=== PATIENT | female | born 1975 | race Caucasian/White ===

== ENCOUNTER 2018-01-10 20:47 | Emergency (ER) | payer OTHER ==
--- OUTSIDE RECORDS SUMMARY | 2018-01-10 20:49 | XMS REPORT ---
:1975 Author Organization eClinicalWorks Care Team Providers Name Role Phone Germaine Bashir Provider Role Unavailable Allergies No Known Allergies Problems Problem Type Condition Code Onset Dates Condition Status Problem Chronic vaginitis N76.1 Active Medications No Known Medications Results No Known Results Summary Purpose eClinicalWorks Submission
--- OUTSIDE RECORDS SUMMARY | 2018-01-10 20:50 | XMS REPORT ---
:1975 Author Organization [employer] Care Team Providers Name Role Phone Germaine Bashir Provider Role Unavailable Allergies, Adverse Reactions, Alerts Substance Reaction Event Type N.K.D.A. Info Not Available Non Drug Allergy Problems Problem Type Condition Code Onset Dates Condition Status Assessment Discharge of vagina N89.8 Active Assessment Bad odor of urine R82.90 Active Problem Chronic vaginitis N76.1 Active Assessment Chronic vaginitis N76.1 Active Medications Medication Code Code Instructions Start End Date Status Dosage System Date Ibuprofen NDC 69436192357 800 MG Orally Active 1 tablet Three times a with food day or milk as needed Tinidazole NDC 12288864503 500 MG Orally July 02, July 10, Active 4 tablets Once a day 2017 2017 with food Diflucan NDC 63575789202 150 MG Orally July 10, Active 1 tablet Take one now and 2018 repeat dose in 72h Adderall NDC 28234437005 20 MG Orally Active 1 tablet in Once a day the morning Results Name Result Date Reference Range Unit Abnormality Flag URINALYSIS AUTO W/O SCOPE (12904) ----NIT Neg 20170702 ----URO 0.2 20170702 ----PROTEIN Neg 20170702 ----pH 6.5 20170702 ----BLO Neg 20170702 ----GLUCOSE Neg 20170702 ----SWATI Neg 20170702 ----BILIRUBIN Neg 20170702 ----KETONES Neg 20170702 ----SPECIFIC GRAVITY 1.025 20170702 Summary Purpose eClinicalWorks Submission
[2018-01-10] MEDS ORDERED: ONDANSETRON 4 MG/2 ML VIAL ONE (23:01)
[2018-01-10] MEDS ORDERED: MORPHINE 4 MG/ML SYR ONE (23:01)
[2018-01-10] MEDS ORDERED: LIDOCAINE 1% W/EPI 1:100,000 MDV 50 ML VIAL ONE (23:26)
[2018-01-10 23:52] LABS: Absolute Lymphocytes (CBC) 2.6 K/uL (0.7-4.9); Absolute Monocytes 0.7 K/uL (0.1-1.3); Absolute Neutrophil 4.7 K/uL (1.8-8.0); Basophils % 0.5 % (0-1.3); Eosinophils % 3.6 % (0-4.4); Hematocrit 39.6 % (36.0-45.0); Lymphocytes % 31.4 % (15.3-44.8); MCH 28.8 pg (27.0-35.0); MCV 85.9 fL (80-100); MPV 9.1 fL (7.6-11.3); Monocytes % 8.8 % (3.3-12.3); RBC Red Blood Cell Count 4.61 M/uL (3.86-4.86)
[2018-01-10] MEDS ORDERED: BUPIVACAINE 0.25% PF 10 ML VIAL ONE (23:52)
[2018-01-10 23:59] LABS: Potassium 3.6 mmol/L (3.5-5.1)
--- NOTE | 2018-01-11 00:25 | EDPHYS ---
Physician Documentation [facility] Name: Nat Hernandez Age: 42 yrs Sex: Female : 1975 Arrival Date: 01/10/2018 Time: 20:51 Bed 19 Private MD: Raul Vann T ED Physician Bob Bennett HPI: 01/10 22:50 This 42 yrs old Female presents to ER via Ambulatory with complaints of Cyst cp - Lower Back. 22:50 The patient presents with an abscess of the coccyx, the patient presents with a swollen cp area of the coccyx. 22:50 Description: draining, swollen. Onset: The symptoms/episode began/occurred gradually, cp and became worse today. Associated signs and symptoms: Pertinent negatives: fever, headache, nausea, vomiting. Severity of symptoms: in the emergency department the symptoms are unchanged, despite home interventions. 22:50 The patient has been recently seen by a physician: Dr. Vann earlier today, with similar cp presenting complaints, was given a prescription for antibiotics. 22:50 Patient reports she was instructed to f/u with DR Peterson but has not made appt yet and cp pain increased today. 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 - Social history:: Smoking status: Patient uses tobacco products, 2-3 cigarettes per day. - Ebola Screening: : Patient denies travel to an Ebola-affected area in the 21 days before illness onset. ROS: 23:00 Constitutional: Negative for body aches, chills, fever, poor PO intake. cp 23:00 Eyes: Negative for injury, pain, redness, and discharge. cp 23:00 ENT: Negative for drainage from ear(s), ear pain, sore throat, difficulty swallowing, difficulty handling secretions. 23:00 Cardiovascular: Negative for chest pain, palpitations. 23:00 Respiratory: Negative for cough, shortness of breath, wheezing. 23:00 Abdomen/GI: Negative for abdominal pain, vomiting, diarrhea, constipation. 23:00 Skin: Positive for abscess, swelling, of the coccyx. 23:00 Neuro: Negative for altered mental status, headache, weakness. 23:00 All other systems are negative. Exam: 23:05 Constitutional: The patient appears in no acute distress, alert, awake, non-toxic, well cp developed, well nourished. 23:05 Head/Face: Normocephalic, atraumatic. cp 23:05 Eyes: Periorbital structures: appear normal, Conjunctiva: normal, no exudate, no injection, Sclera: no appreciated abnormality, Lids and lashes: appear normal, bilaterally. 23:05 ENT: External ear(s): are unremarkable, Nose: is normal, Mouth: Lips: moist, Oral mucosa: moist, Posterior pharynx: is normal, airway is patent, no erythema, no exudate. 23:05 Chest/axilla: Inspection: normal, Palpation: is normal, no crepitus, no tenderness. 23:05 Cardiovascular: Rate: normal, Rhythm: regular. 23:05 Respiratory: the patient does not display signs of respiratory distress, Respirations: normal, no use of accessory muscles, no retractions, no splinting, no tachypnea, labored breathing, is not present, Breath sounds: are clear throughout, no decreased breath sounds, no stridor, no wheezing. 23:05 Abdomen/GI: Inspection: abdomen appears normal, Palpation: abdomen is soft and non-tender, in all quadrants, involuntary guarding, is not appreciated. 23:05 Skin: abscess, that is small, of the coccyx, with drainage, that is bloody, that is purulent, with mild induration. Vital Signs: 20:59 BP 135 / 91; Pulse 88; Resp 18; Temp 97.1; Pulse Ox 100% on R/A; Weight 77.11 kg (R); aj1 Height 5 ft. 4 in. (162.56 cm) (R); Pain 8/10; 22:00 BP 131 / 75; Pulse 89; Resp 17; Temp 97.2; Pulse Ox 99% on R/A; rr5 20:59 Body Mass Index 29.18 (77.11 kg, 162.56 cm) aj1 Procedures: 01/11 00:20 I \T\ D: Incision and drainage was performed for an abscess of the pilonidal cyst Prepped cp with Betadine, Anesthetized with 10 ccs of 1% lidocaine w/o epi and 0.25% marcaine. Incised with #11 blade. Drained small amount purulent fluid. bloody fluid. Cultures obtained. Abscess cavity explored. Packed with iodoform gauze, Dressing: sterile 4x4 gauze, the patient tolerated the procedure well. MDM: 01/10 21:59 Patient medically screened. cp 23:00 Differential diagnosis: cellulitis, abscess. cp 01/11 00:25 Data reviewed: vital signs, nurses notes, lab test result(s), and as a result, I will cp discharge patient. 00:25 Counseling: I had a detailed discussion with the patient and/or guardian regarding: the cp historical points, exam findings, and any diagnostic results supporting the discharge/admit diagnosis, lab results, the need for outpatient follow up, a general surgeon, to return to the emergency department if symptoms worsen or persist or if there are any questions or concerns that arise at home. Response to treatment: the patient's symptoms have mildly improved after treatment, and as a result, I will discharge patient. 01/10 22:47 Order name: CBC with Diff; Complete Time: 00:26 cp 01/10 22:47 Order name: BMP; Complete Time: 00: cp 01/10 22:47 Order name: Wound Culture cp 01/10 22:47 Order name: IV; Complete Time: 23:49 cp 01/10 22:47 Order name: I\T\D Setup; Complete Time: 23:49 cp Administered Medications: 01/10 23:30 Drug: Zofran 4 mg Route: IVP; Site: right antecubital; rr5 01/11 00:07 Follow up: Response: No adverse reaction rr5 01/10 23:35 Drug: morphine 2 mg Route: IVP; Site: right antecubital; rr5 01/11 00:07 Follow up: Response: No adverse reaction rr5 00:39 Follow up: Response: No adverse reaction rr5 01/10 23:48 CANCELLED (not available): Marcaine (0.5 %) 5 ml 10 ml Infiltration once rr5 01/11 00:07 Drug: Marcaine (0.25 %) 5 ml Route: Infiltration; rr5 00:08 Drug: Lidocaine-Epinephrine -1%: (1:100,000) 5 ml Volume: 20 ml; Route: Infiltration; rr5 00:37 Drug: Hydrocodone-Acetaminophen (7.5 mg-325 mg) 1 tabs Route: PO; rr5 01:00 Follow up: Response: No adverse reaction rr5 00:38 Drug: Clindamycin 900 mg Route: IVPB; Infused Over: 30 mins; Site: right antecubital; rr5 01:00 Follow up: Response: No adverse reaction rr5 00:38 Drug: Bactrim (160 mg-800 mg (DS) 1 tablet Route: PO; rr5 01:00 Follow up: Response: No adverse reaction rr5 Disposition: 05:56 Co-signature as Attending Physician, Bob Bennett MD I agree with the assessment and sherrell plan of care. Disposition: 01/11/18 00:25 Discharged to Home. Impression: Pilonidal cyst with abscess. - Condition is Stable. - Discharge Instructions: Incision and Drainage, Pilonidal Cyst, Incision and Drainage, Care After. - Prescriptions for Clindamycin HCl 300 mg Oral Capsule - take 1 capsule by ORAL route every 6 hours for 10 days; 40 capsule. Tylenol- Codeine #3 300-30 mg Oral Tablet - take 2 tablets by ORAL route every 6 hours As needed; 20 tablet. Bactrim DS 800- 160 mg Oral Tablet - take 1 tablet by ORAL route every 12 hours for 10 days; 20 tablet. - Medication Reconciliation Form, Thank You Letter, Antibiotic Education, Prescription Opioid Use form. - Follow up: Uriah Becerra MD; When: 2 - 3 days; Reason: Wound Recheck. - Problem is new. - Symptoms have improved. Signatures: Dispatcher [employer] Nat Kim RN RN aj1 Bob Bennett MD MD cha Page, Corey, PA PA cp Roque, Raymond, RN RN rr5 Corrections: (The following items were deleted from the chart) 01/10 23:48 22:47 Marcaine (0.5 %) 5 ml 10 ml Infiltration once ordered. cp rr5 01/11 01:23 00:25 01/11/2018 00:25 Discharged to Home. Impression: Pilonidal cyst with abscess. rr5 Condition is Stable. Forms are Medication Reconciliation Form, Thank You Letter, Antibiotic Education, Prescription Opioid Use. Follow up: Uriah Becerra; When: 2 - 3 days; Reason: Wound Recheck. Problem is new. Symptoms have improved. cp
--- NOTE | 2018-01-11 00:25 | ER ---
Nurse's Notes [facility] Name: Nat Hernandez Age: 42 yrs Sex: Female : 1975 Arrival Date: 01/10/2018 Time: 20:51 Bed 19 Private MD: Raul Vann T Diagnosis: Pilonidal cyst with abscess Presentation: 01/10 20:56 Presenting complaint: Patient states: "right on my tail bone it gets irritated and it aj1 swell it, and its done that and its very painful. I've had to have it lanced before. I saw Dr. Vann and he told me to follow up with Dr. Peterson tomorrow,but I couldn't wait, it hurts really bad". Transition of care: patient was not received from another setting of care. Onset of symptoms was January 10, 2018. Risk Assessment: Do you want to hurt yourself or someone else? Patient reports no desire to harm self or others. Initial Sepsis Screen: Does the patient meet any 2 criteria? No. Patient's initial sepsis screen is negative. Does the patient have a suspected source of infection? No. Patient's initial sepsis screen is negative. Care prior to arrival: None. 20:56 Method Of Arrival: Ambulatory aj1 20:56 Acuity: CODEY 4 aj1 Triage Assessment: 20:59 General: Appears in no apparent distress. comfortable, Behavior is calm, cooperative, aj1 appropriate for age. Pain: Complains of pain in coccyx Pain currently is 8 out of 10 on a pain scale. Neuro: Level of Consciousness is awake, alert, obeys commands. Cardiovascular: Patient's skin is warm and dry. Respiratory: Airway is patent Respiratory effort is even, unlabored, Respiratory pattern is regular, symmetrical. 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 - Social history:: Smoking status: Patient uses tobacco products, 2-3 cigarettes per day. - Ebola Screening: : Patient denies travel to an Ebola-affected area in the 21 days before illness onset. Screenin/26 00:04 Abuse screen: Denies threats or abuse. Denies injuries from another. Nutritional rr5 screening: No deficits noted. Tuberculosis screening: No symptoms or risk factors identified. Fall Risk None identified. Assessment: 01/10 23:42 General: Appears in no apparent distress. comfortable. rr5 01/11 00:01 Pain: Complains of pain in buttocks Pain at worst was 8 out of 10 on a pain scale. rr5 Quality of pain is described as aching, Aggravated by increased activity, repositioning. Neuro: Level of Consciousness is awake, alert, obeys commands, Oriented to person, place, time. Cardiovascular: Capillary refill < 3 seconds. Respiratory: Airway is patent. GI: No signs and/or symptoms were reported involving the gastrointestinal system. : No signs and/or symptoms were reported regarding the genitourinary system. EENT: No signs and/or symptoms were reported regarding the EENT system. Derm: Abscess located on buttocks. Musculoskeletal: No signs and/or symptoms reported regarding the musculoskeletal system. Capillary refill < 3 seconds, Range of motion: limited in all extremities. 00:30 Reassessment: Patient states feeling better. Patient states symptoms have improved. rr5 Vital Signs: 01/10 20:59 BP 135 / 91; Pulse 88; Resp 18; Temp 97.1; Pulse Ox 100% on R/A; Weight 77.11 kg (R); aj1 Height 5 ft. 4 in. (162.56 cm) (R); Pain 8/10; 22:00 BP 131 / 75; Pulse 89; Resp 17; Temp 97.2; Pulse Ox 99% on R/A; rr5 20:59 Body Mass Index 29.18 (77.11 kg, 162.56 cm) aj1 ED Course: 20:51 Patient arrived in ED. ds1 20:51 Raul Vann MD is Private Physician. ds1 20:57 Triage completed. aj1 20:59 Arm band placed on Patient placed in waiting room, Patient notified of wait time. aj1 21:59 Bob Dunn PA is PHCP. cp 21:59 Bob Bennett MD is Attending Physician. cp 22:22 George Higuera RN is Primary Nurse. rr5 23:25 Inserted saline lock: 20 gauge in right antecubital area, using aseptic technique. rr5 Blood collected. 01/11 00:04 Patient has correct armband on for positive identification. Bed in low position. Call rr5 light in reach. 00:11 Assist provider with I \\T\\ D: of an abscess on pilonidal cyst. rr5 00:24 Uriah Becerra MD is Referral Physician. cp 01:00 IV discontinued. rr5 Administered Medications: 01/10 23:30 Drug: Zofran 4 mg Route: IVP; Site: right antecubital; rr5 01/11 00:07 Follow up: Response: No adverse reaction rr5 01/10 23:35 Drug: morphine 2 mg Route: IVP; Site: right antecubital; rr5 01/11 00:07 Follow up: Response: No adverse reaction rr5 00:39 Follow up: Response: No adverse reaction rr5 01/10 23:48 CANCELLED (not available): Marcaine (0.5 %) 5 ml 10 ml Infiltration once rr5 01/11 00:07 Drug: Marcaine (0.25 %) 5 ml Route: Infiltration; rr5 00:08 Drug: Lidocaine-Epinephrine -1%: (1:100,000) 5 ml Volume: 20 ml; Route: Infiltration; rr5 00:37 Drug: Hydrocodone-Acetaminophen (7.5 mg-325 mg) 1 tabs Route: PO; rr5 01:00 Follow up: Response: No adverse reaction rr5 00:38 Drug: Clindamycin 900 mg Route: IVPB; Infused Over: 30 mins; Site: right antecubital; rr5 01:00 Follow up: Response: No adverse reaction rr5 00:38 Drug: Bactrim (160 mg-800 mg (DS) 1 tablet Route: PO; rr5 01:00 Follow up: Response: No adverse reaction rr5 Outcome: 01:00 Discharged to home ambulatory. rr5 01:00 Condition: stable 01:00 Discharge instructions given to patient, Instructed on discharge instructions, follow up and referral plans. medication usage, Demonstrated understanding of instructions, follow-up care, medications. 01:00 Prescriptions given X 3. rr5 01:23 Patient left the ED. rr5 Signatures: Nat Chaudhary, RN RN aj1 Leanne Syed ds1 Bob Dunn PA PA cp Roque, Raymond RN RN rr5 Corrections: (The following items were deleted from the chart) 01/10 23:42 23:41 Inserted saline lock: 20 gauge in right antecubital area, using aseptic rr5 technique. Blood collected. rr5 01/11 01:20 00:25 Discharge ordered by . larisa rr5
[2018-01-11] MEDS ORDERED: HYDROCODONE/APAP 7.5/325 MG TAB ONE (00:34)
[2018-01-11] MEDS ORDERED: CLINDAMYCIN 900MG/D5W 900 MG/50 ML BAG IV ONE (00:35)
[2018-01-11] MEDS ORDERED: SMZ./TMP. 800/160 MG TABLET ONE (00:35)
[2018-01-11 01:46] VITALS: BP 131/75; TEMP 97.2; O2SAT 99
== END 2018-01-11 01:23 | disposition home or self-care (01) ==
LOC: ER 20:47
PROC: 0H98XZZ Drainage of Buttock Skin, External Approach (ICD-10-PCS; principal; 2018-01-11)
DX: L05.01 Pilonidal cyst with abscess (principal); F90.9 Attention-deficit hyperactivity disorder, unspecified type; Z72.0 Tobacco use
CPT/HCPCS: 36415; 80048; 85025; 87070; 87205; 96374; 96375; 99284; J2405

== ENCOUNTER 2018-01-13 08:29 | Emergency (ER) | payer OTHER ==
--- OUTSIDE RECORDS SUMMARY | 2018-01-13 08:30 | XMS REPORT ---
[...] Date Status Dosage System Date Ibuprofen NDC 91311964558 800 MG Orally Active 1 tablet Three times a with food day or milk as needed Tinidazole NDC 54424725888 500 MG Orally July 02, July 10, Active 4 tablets Once a day 2017 2017 with food Diflucan NDC 12131645267 150 MG Orally July 10, Active 1 tablet Take one now and 2018 repeat dose in 72h Adderall NDC 18250064600 20 MG Orally Active 1 tablet in Once a day the morning Results Name Result Date Reference Range Unit Abnormality Flag URINALYSIS AUTO W/O SCOPE (50314) ----NIT Neg 20170702 ----URO 0.2 20170702 ----PROTEIN Neg 20170702 ----pH 6.5 20170702 ----BLO Neg 20170702 ----GLUCOSE Neg 20170702 ----SWATI Neg 20170702 ----BILIRUBIN Neg 20170702 ----KETONES Neg 20170702 ----SPECIFIC GRAVITY 1.025 20170702 Summary Purpose eClinicalWorks Submission
--- NOTE | 2018-01-13 08:47 | ER ---
Nurse's Notes [facility] Name: Nat Hernandez Age: 42 yrs Sex: Female : 1975 Arrival Date: 01/13/2018 Time: 08:31 Bed 14 Private MD: Raul Vann T Diagnosis: Encounter for change or removal of surgical wound dressing Presentation: 01/13 08:35 Presenting complaint: Patient states: Had I\\T\\D completed on and states "I just aa5 need for you to check the wound again and maybe take the dressing off". 08:35 Transition of care: patient was not received from another setting of care. Onset of aa5 symptoms was December 2017. Risk Assessment: Do you want to hurt yourself or someone else? Patient reports no desire to harm self or others. Initial Sepsis Screen: Does the patient meet any 2 criteria? No. Patient's initial sepsis screen is negative. Does the patient have a suspected source of infection? No. Patient's initial sepsis screen is negative. Care prior to arrival: None. 08:35 Method Of Arrival: Ambulatory aa5 08:35 Acuity: CODEY 5 aa5 Historical: - Allergies: 08:36 No Known Allergies; aa5 - PMHx: 08:38 ADD/ADHD; Kidney stones; aa5 - PSHx: 08:38 ; Hysterectomy; Cholecystectomy; Lithotripsy; aa5 - Immunization history:: Flu vaccine is not up to date. - Social history:: Smoking status: Patient uses tobacco products, 2-3 cigarettes a day . - Ebola Screening: : No symptoms or risks identified at this time. Screenin:50 Abuse screen: Denies threats or abuse. Nutritional screening: No deficits noted. em Tuberculosis screening: No symptoms or risk factors identified. Fall Risk None identified. Assessment: 08:45 General: Appears in no apparent distress. comfortable, Behavior is calm, cooperative. em Pain: Complains of pain in buttocks Pain currently is 5 out of 10 on a pain scale. Neuro: Level of Consciousness is awake, alert, obeys commands, Oriented to person, place, time, situation. Cardiovascular: Capillary refill < 3 seconds Patient's skin is warm and dry. Respiratory: Airway is patent Respiratory effort is even, unlabored, Respiratory pattern is regular, symmetrical. GI: Abdomen is flat. : No signs and/or symptoms were reported regarding the genitourinary system. EENT: No signs and/or symptoms were reported regarding the EENT system. Derm: Wound noted gluteal cleft no redness or drainage noted to the wound. Musculoskeletal: Range of motion: intact in all extremities. 08:45 Reassessment: I agree with assessment completed by Saqib Langley LVN . aa5 Vital Signs: 08:36 BP 119 / 87; Pulse 94; Resp 16 S; Temp 98.8(O); Pulse Ox 99% on R/A; Weight 77.11 kg aa5 (R); Height 5 ft. 4 in. (162.56 cm) (R); Pain 5/10; 08:36 Body Mass Index 29.18 (77.11 kg, 162.56 cm) aa5 ED Course: 08:31 Patient arrived in ED. mr 08:32 Raul Vann MD is Private Physician. mr 08:33 Saqib Langley LVN is Primary Nurse. em 08:35 Stephen Arias MD is Attending Physician. gs 08:36 Arm band placed on. aa5 08:38 Triage completed. aa5 08:50 Patient has correct armband on for positive identification. Bed in low position. Call em light in reach. 08:50 No provider procedures requiring assistance completed. Patient did not have IV access em during this emergency room visit. Administered Medications: No medications were administered Outcome: 08:46 Discharge ordered by . gs 08:58 Discharged to home ambulatory. em 08:58 Condition: good 08:58 Discharge instructions given to patient, Instructed on discharge instructions, follow up and referral plans. wound care, Demonstrated understanding of instructions, follow-up care. 08:59 Patient left the ED. em Signatures: Clari Devries mr Saqib Langley LVN LVN em Dahlia Howe, RN RN aa5 Stephen Arias MD MD Corrections: (The following items were deleted from the chart) 08:59 08:58 Discharge instructions given to patient, Instructed on discharge instructions, em follow up and referral plans. Demonstrated understanding of instructions, follow-up care, em
--- NOTE | 2018-01-13 08:47 | EDPHYS ---
Physician Documentation [facility] Name: Nat Hernandez Age: 42 yrs Sex: Female : 1975 Arrival Date: 01/13/2018 Time: 08:31 Bed 14 Private MD: Raul Vann T ED Physician Stephen Arias HPI: 01/13 08:43 This 42 yrs old Female presents to ER via Ambulatory with complaints of Wound gs Recheck. 08:43 Patient presents to ED for recheck of: abscess. The affected area is on the buttocks. gs Previous treatment: Treatment type: The patient's original treatment included an I\T\D. Progress: The patient reports excellent improvement in the affected area. There has been resolution, improvement, or non-development of any drainage, fever, pain, redness or swelling. Historical: - Allergies: 08:36 No Known Allergies; aa5 - PMHx: 08:38 ADD/ADHD; Kidney stones; aa5 - PSHx: 08:38 ; Hysterectomy; Cholecystectomy; Lithotripsy; aa5 - Immunization history:: Flu vaccine is not up to date. - Social history:: Smoking status: Patient uses tobacco products, 2-3 cigarettes a day . - Ebola Screening: : No symptoms or risks identified at this time. ROS: 08:43 Constitutional: Negative for fever. gs Exam: 08:43 Skin: abscess, that is small, healing, of the buttocks. gs Vital Signs: 08:36 BP 119 / 87; Pulse 94; Resp 16 S; Temp 98.8(O); Pulse Ox 99% on R/A; Weight 77.11 kg aa5 (R); Height 5 ft. 4 in. (162.56 cm) (R); Pain 5/10; 08:36 Body Mass Index 29.18 (77.11 kg, 162.56 cm) aa5 MDM: 08:43 Patient medically screened. gs Administered Medications: No medications were administered Disposition: 01/13/18 08:46 Discharged to Home. Impression: Encounter for change or removal of surgical wound dressing. - Condition is Stable. - Discharge Instructions: How to Change Your Dressing. - Medication Reconciliation Form, Thank You Letter, Antibiotic Education, Prescription Opioid Use form. - Follow up: Emergency Department; When: 2 - 3 days; Reason: Re-evaluation by your physician. Signatures: Saqib Langley, CELIA VIZCARRAN Dahlia Vu, RN RN aa5 Stephen Arias MD MD gs Corrections: (The following items were deleted from the chart) 08:59 08:46 01/13/2018 08:46 Discharged to Home. Impression: Encounter for change or removal em of surgical wound dressing. Condition is Stable. Forms are Medication Reconciliation Form, Thank You Letter, Antibiotic Education, Prescription Opioid Use. Follow up: Emergency Department; When: 2 - 3 days; Reason: Re-evaluation by your physician. gs
[2018-01-13 09:04] VITALS: BP 119/87; TEMP 98.8; O2SAT 99
== END 2018-01-13 08:59 | disposition home or self-care (01) ==
LOC: ER 08:29
DX: Z48.01 Encounter for change or removal of surgical wound dressing (principal); Z72.0 Tobacco use
CPT/HCPCS: 99281

== ENCOUNTER 2018-11-16 07:27 | Emergency (ER) | payer OTHER ==
[2018-11-16] MEDS ORDERED: NA CHLORIDE 0.9% 1,000 ML ONE ×2 (07:46→08:51)
[2018-11-16] MEDS ORDERED: PROMETHAZINE 25 MG/ML VIAL ONE (07:46)
[2018-11-16 07:55] LABS: Absolute Lymphocytes (CBC) 1.2 K/uL (0.7-4.9); Basophils % 0.5 % (0-1.3); Hematocrit 37.2 % (36.0-45.0); Lymphocytes % 11.7 % (15.3-44.8); MPV 8.4 fL (7.6-11.3); RBC Red Blood Cell Count 4.81 M/uL (3.86-4.86)
[2018-11-16] MEDS ORDERED: HYDROCODONE/CHLORPHEN 5 ML/OSYR ONE (08:54)
--- NOTE | 2018-11-16 09:29 | ER ---
Nurse's Notes [facility] Name: Nat Hernandez Age: 43 yrs Sex: Female : 1975 Arrival Date: 11/16/2018 Time: : Bed 16 Private MD: Diagnosis: Acute bronchitis, unspecified;Dehydration Presentation: 11/16 07:36 Presenting complaint: Patient states: i have this symptoms for 3 days now, body aches, hj non productive cough, sore throat, headache, reports PCP visit yesterday with Rx of allergy meds which according to her not helping; denies diarrhea, abd pain or chest pain;. Transition of care: patient was not received from another setting of care. Onset of symptoms was November 16, 2018. Risk Assessment: Do you want to hurt yourself or someone else? Patient reports no desire to harm self or others. Initial Sepsis Screen: Does the patient meet any 2 criteria? Yes Does the patient have a suspected source of infection? Yes: Productive cough/pneumonia. Care prior to arrival: None. 07:36 Method Of Arrival: Ambulatory 07:36 Acuity: CODEY 4 hj Triage Assessment: 07:39 General: Appears in no apparent distress. uncomfortable, Behavior is calm, cooperative, hj appropriate for age. Pain: Complains of pain in throat, head. Historical: - Allergies: 07:39 No Known Allergies; hj - Home Meds: 07:39 None [Active]; hj - PMHx: 07:39 ADD/ADHD; Kidney stones; hj - PSHx: 07:39 ; Hysterectomy; Cholecystectomy; Lithotripsy; hj - Immunization history:: Adult Immunizations up to date. - Social history:: Smoking status: Patient/guardian denies using tobacco, Patient/guardian denies using alcohol. - Ebola Screening: : Patient negative for fever greater than or equal to 101.5 degrees Fahrenheit, and additional compatible Ebola Virus Disease symptoms Patient denies exposure to infectious person Patient denies travel to an Ebola-affected area in the 21 days before illness onset. Screenin:39 Abuse screen: Denies threats or abuse. Denies injuries from another. Nutritional hj screening: No deficits noted. Tuberculosis screening: No symptoms or risk factors identified. Fall Risk None identified. Assessment: 07:39 General: Appears in no apparent distress. uncomfortable, Behavior is calm, cooperative, hj appropriate for age. Pain: Complains of pain in throat, head. Neuro: Level of Consciousness is awake, alert, obeys commands, Oriented to person, place, time, situation, Appropriate for age. Cardiovascular: Capillary refill < 3 seconds. Respiratory: Airway is patent Respiratory effort is even, unlabored, Respiratory pattern is regular, symmetrical. GI: No signs and/or symptoms were reported involving the gastrointestinal system. : No signs and/or symptoms were reported regarding the genitourinary system. EENT: Throat. Derm: No signs and/or symptoms reported regarding the dermatologic system. Musculoskeletal: No signs and/or symptoms reported regarding the musculoskeletal system. 08:30 Reassessment: Patient and/or family updated on plan of care and expected duration. Pain hj level reassessed. Patient is alert, oriented x 3, equal unlabored respirations, skin warm/dry/pink. Patient states feeling better. 09:29 Reassessment: Patient and/or family updated on plan of care and expected duration. Pain hj level reassessed. Patient is alert, oriented x 3, equal unlabored respirations, skin warm/dry/pink. awaiting fluids to be finished; Patient states symptoms have improved. 09:46 Reassessment: D/C instructions given, awaiting for a ride;. hj 10:17 Reassessment: Patient and/or family updated on plan of care and expected duration. Pain hj level reassessed. Patient is alert, oriented x 3, equal unlabored respirations, skin warm/dry/pink. still awaiting for ride; to informed nurse if ride arrives; for D/C:. Vital Signs: 07:40 BP 140 / 81; Pulse 102; Resp 18; Temp 98.1(O); Pulse Ox 97% on R/A; Weight 72.57 kg; hj Height 5 ft. 4 in. (162.56 cm); 08:37 BP 135 / 91; Pulse 99; Resp 18; Pulse Ox 99% on R/A; hj 09:07 BP 128 / 66; Pulse 100; Resp 18; Pulse Ox 97% on R/A; hj 09:39 BP 125 / 68; Pulse 101; Resp 18; Pulse Ox 97% on R/A; hj 10:24 BP 123 / 77; Pulse 99; Resp 18; Temp 98.1(TE); Pulse Ox 98% on R/A; hj 07:40 Body Mass Index 27.46 (72.57 kg, 162.56 cm) ED Course: 07:31 Patient arrived in ED. mr 07:31 Uriah Angeles, RN is Primary Nurse. hj 07:37 [facility]land[facility]C [facility]. snw 07:37 Lonnie Dimas MD is Attending Physician. snw 07:37 Triage completed. hj 07:40 Arm band placed on. hj 07:40 Patient has correct armband on for positive identification. Bed in low position. Call light in reach. Side rails up X 1. 07:48 Initial lab(s) drawn, by me, sent to lab. Flu and/or RSV swab sent to lab. Strep swab dh3 sent to lab. Inserted saline lock: 20 gauge in left antecubital area, using aseptic technique. Blood collected. 09:47 No provider procedures requiring assistance completed. IV discontinued, intact, hj bleeding controlled, No redness/swelling at site. Pressure dressing applied. Administered Medications: 07:51 Drug: NS 0.9% 1000 ml Route: IV; Rate: 1 bolus; Site: left antecubital; hj 08:37 Follow up: IV Status: Completed infusion; IV Intake: 1000ml hj 07:51 Drug: Phenergan 12.5 mg Route: IVP; Site: left antecubital; hj 08:37 Follow up: Response: No adverse reaction hj 08:49 Drug: Tussionex Pennkinetic ER 5 ml Route: PO; hj 08:54 Follow up: Response: No adverse reaction hj 08:49 Drug: NS 0.9% 1000 ml Route: IV; Rate: 1000 ml; Site: left antecubital; hj 09:34 Follow up: IV Status: Completed infusion; IV Intake: 1000ml hj Intake: 08:37 IV: 1000ml; Total: 1000ml. hj 09:34 IV: 1000ml; Total: 2000ml. Outcome: 09:27 Discharge ordered by . snw 09:47 Discharged to home ambulatory, with family. hj 09:47 Condition: stable 09:47 Discharge instructions given to patient, family, Instructed on discharge instructions, follow up and referral plans. medication usage, Demonstrated understanding of instructions, follow-up care, medications, Prescriptions given X 3. 10:43 Patient left the ED. hj Signatures: Mirlande Hernadez, RCAQUEL-C TREASURY SPECIALIST-Csnw Clari Devries mr Uriah Angeles RN RN Lyric Gerber [facility] Corrections: (The following items were deleted from the chart) 09:34 09:29 Reassessment: Patient and/or family updated on plan of care and expected hj duration. Pain level reassessed. Patient is alert, oriented x 3, equal unlabored respirations, skin warm/dry/pink. Patient states symptoms have improved. hj
--- NOTE | 2018-11-16 09:30 | EDPHYS ---
Physician Documentation [facility] Name: Nta Hernandez Age: 43 yrs Sex: Female : 1975 Arrival Date: 11/16/2018 Time: 07:31 Bed 16 Private MD: ED Physician Lonnie Dimas HPI: 11/16 07:45 This 43 yrs old Female presents to ER via Ambulatory with complaints of Flu snw Symptoms. 07:45 Onset: The symptoms/episode began/occurred suddenly, 2 day(s) ago, and became snw persistent. Associated signs and symptoms: Pertinent positives: cough, fever, shortness of breath, vomiting. The patient has not experienced similar symptoms in the past. The patient has not recently seen a physician. Historical: - Allergies: 07:39 No Known Allergies; hj - Home Meds: 07:39 None [Active]; hj - PMHx: 07:39 ADD/ADHD; Kidney stones; hj - PSHx: 07:39 ; Hysterectomy; Cholecystectomy; Lithotripsy; hj - Immunization history:: Adult Immunizations up to date. - Social history:: Smoking status: Patient/guardian denies using tobacco, Patient/guardian denies using alcohol. - Ebola Screening: : Patient negative for fever greater than or equal to 101.5 degrees Fahrenheit, and additional compatible Ebola Virus Disease symptoms Patient denies exposure to infectious person Patient denies travel to an Ebola-affected area in the 21 days before illness onset. ROS: 07:45 Eyes: Negative for injury, pain, redness, and discharge, ENT: Negative for injury, snw pain, and discharge, Neck: Negative for injury, pain, and swelling, Cardiovascular: Negative for chest pain, palpitations, and edema. 07:45 Back: Negative for injury and pain, : Negative for injury, bleeding, discharge, and swelling, MS/Extremity: Negative for injury and deformity, Skin: Negative for injury, rash, and discoloration, Neuro: Negative for headache, weakness, numbness, tingling, and seizure. 07:45 Constitutional: Positive for body aches, fatigue, malaise, poor PO intake. 07:45 Respiratory: Positive for cough, shortness of breath. 07:45 Abdomen/GI: Positive for nausea and vomiting. Exam: 07:43 Head/Face: Normocephalic, atraumatic. Eyes: Pupils equal round and reactive to light, snw extra-ocular motions intact. Lids and lashes normal. Conjunctiva and sclera are non-icteric and not injected. Cornea within normal limits. Periorbital areas with no swelling, redness, or edema. 07:43 Neck: Trachea midline, no thyromegaly or masses palpated, and no cervical lymphadenopathy. Supple, full range of motion without nuchal rigidity, or vertebral point tenderness. No Meningismus. Chest/axilla: Normal chest wall appearance and motion. Nontender with no deformity. No lesions are appreciated. 07:43 Abdomen/GI: Soft, non-tender, with normal bowel sounds. No distension or tympany. No guarding or rebound. No evidence of tenderness throughout. Back: No spinal tenderness. No costovertebral tenderness. Full range of motion. Skin: Warm, dry with normal turgor. Normal color with no rashes, no lesions, and no evidence of cellulitis. MS/ Extremity: Pulses equal, no cyanosis. Neurovascular intact. Full, normal range of motion. Neuro: Awake and alert, GCS 15, oriented to person, place, time, and situation. Cranial nerves II-XII grossly intact. Motor strength 5/5 in all extremities. Sensory grossly intact. Cerebellar exam normal. Normal gait. Psych: Awake, alert, with orientation to person, place and time. Behavior, mood, and affect are within normal limits. 07:43 Constitutional: The patient appears alert, anxious, uncomfortable. 07:43 ENT: TM's: erythema, that is mild, on the right, Nose: is normal, Mouth: is normal, Posterior pharynx: erythema, that is moderate, Voice: is hoarse. 07:43 Cardiovascular: Rate: tachycardic, Rhythm: regular, Heart sounds: normal. 07:43 Respiratory: the patient does not display signs of respiratory distress, Respirations: shallow respirations, Breath sounds: are clear throughout. Vital Signs: 07:40 BP 140 / 81; Pulse 102; Resp 18; Temp 98.1(O); Pulse Ox 97% on R/A; Weight 72.57 kg; hj Height 5 ft. 4 in. (162.56 cm); 08:37 BP 135 / 91; Pulse 99; Resp 18; Pulse Ox 99% on R/A; hj 09:07 BP 128 / 66; Pulse 100; Resp 18; Pulse Ox 97% on R/A; hj 09:39 BP 125 / 68; Pulse 101; Resp 18; Pulse Ox 97% on R/A; hj 10:24 BP 123 / 77; Pulse 99; Resp 18; Temp 98.1(TE); Pulse Ox 98% on R/A; hj 07:40 Body Mass Index 27.46 (72.57 kg, 162.56 cm) hj MDM: 07:37 Patient medically screened. snw 09:30 Data reviewed: vital signs, nurses notes. Data interpreted: Pulse oximetry: on room air snw is 97 %. Interpretation: normal. Counseling: I had a detailed discussion with the patient and/or guardian regarding: the historical points, exam findings, and any diagnostic results supporting the discharge/admit diagnosis, lab results, radiology results, the need for outpatient follow up, to return to the emergency department if symptoms worsen or persist or if there are any questions or concerns that arise at home. Response to treatment: the patient's symptoms have mildly improved after treatment. Special discussion: Based on the history and exam findings, there is no indication for further emergent testing or inpatient evaluation. I discussed with the patient/guardian the need to see the primary care provider for further evaluation of the symptoms. 11/16 07:43 Order name: Flu; Complete Time: 08:22 snw 11/16 07:43 Order name: Strep; Complete Time: 08:12 snw 11/16 07:43 Order name: CBC with Diff; Complete Time: 08:12 snw 11/16 08:10 Order name: Throat Culture EDMS Administered Medications: 07:51 Drug: NS 0.9% 1000 ml Route: IV; Rate: 1 bolus; Site: left antecubital; hj 08:37 Follow up: IV Status: Completed infusion; IV Intake: 1000ml hj 07:51 Drug: Phenergan 12.5 mg Route: IVP; Site: left antecubital; hj 08:37 Follow up: Response: No adverse reaction hj 08:49 Drug: Tussionex Pennkinetic ER 5 ml Route: PO; hj 08:54 Follow up: Response: No adverse reaction hj 08:49 Drug: NS 0.9% 1000 ml Route: IV; Rate: 1000 ml; Site: left antecubital; hj 09:34 Follow up: IV Status: Completed infusion; IV Intake: 1000ml Disposition: 20:35 Co-signature as Attending Physician, Lonnie Dimas MD. rn Disposition: 11/16/18 09:27 Discharged to Home. Impression: Acute bronchitis, unspecified, Dehydration. - Condition is Stable. - Discharge Instructions: Acute Bronchitis, Adult, Dehydration, Adult, Cough, Adult, Rehydration, Adult. - Prescriptions for Zyrtec 10 mg Oral Tablet - take 1 tablet by ORAL route once daily As needed; 20 tablet. Tessalon Perles 100 mg Oral Capsule - take 1 capsule by ORAL route every 8 hours As needed; 15 capsule. Prednisone 20 mg Oral Tablet - take 2 tablet by ORAL route once daily for 5 days; 10 tablet. - Work release form, Family Work Release, Medication Reconciliation Form, Thank You Letter, Antibiotic Education, Prescription Opioid Use form. - Follow up: Private Physician; When: 2 - 3 days; Reason: Recheck today's complaints, Continuance of care, Re-evaluation by your physician. Follow up: Emergency Department; When: As needed; Reason: Worsening of condition. Signatures: Dispatcher [employer] EDMS Mirlande Hernadez, BAT BOY/GIRL-C BAT BOY/GIRL-Csnw Lonnie Dimas MD MD rn Joaquin, Henry, RN RN hj Corrections: (The following items were deleted from the chart) 10:43 09:27 11/16/2018 09:27 Discharged to Home. Impression: Acute bronchitis, unspecified; hj Dehydration. Condition is Stable. Forms are Medication Reconciliation Form, Thank You Letter, Antibiotic Education, Prescription Opioid Use. Follow up: Private Physician; When: 2 - 3 days; Reason: Recheck today's complaints, Continuance of care, Re-evaluation by your physician. Follow up: Emergency Department; When: As needed; Reason: Worsening of condition. snw
[2018-11-16 11:04] VITALS: TEMP 98.1
[2018-11-16 11:08] VITALS: BP 123/77; O2SAT 98
== END 2018-11-16 10:43 | disposition home or self-care (01) ==
LOC: ER 07:27
DX: J20.9 Acute bronchitis, unspecified (principal); E86.0 Dehydration
CPT/HCPCS: 96361; 87070; 85025; 36415; 87081; 87804 ×2; 96374; 99284; J2550; J7030 ×2

== ENCOUNTER 2018-11-22 07:38 | Emergency (ER) | payer OTHER ==
--- OUTSIDE RECORDS SUMMARY | 2018-11-22 07:47 | XMS REPORT ---
[...] Date Status Dosage System Date Ibuprofen NDC 48078194179 800 MG Orally Active 1 tablet Three times a with food day or milk as needed Tinidazole NDC 38140297922 500 MG Orally July 02, July 10, Active 4 tablets Once a day 2017 2017 with food Diflucan NDC 11636843188 150 MG Orally July 10, Active 1 tablet Take one now and 2018 repeat dose in 72h Adderall NDC 29312057365 20 MG Orally Active 1 tablet in Once a day the morning Results Name Result Date Reference Range Unit Abnormality Flag URINALYSIS AUTO W/O SCOPE (69273) ----NIT Neg [id number] ----URO 0.2 [id number] ----PROTEIN Neg [id number] ----pH 6.5 [id number] ----BLO Neg [id number] ----GLUCOSE Neg [id number] ----SWATI Neg [id number] ----BILIRUBIN Neg [id number] ----KETONES Neg [id number] ----SPECIFIC GRAVITY 1.025 [id number] Summary Purpose eClinicalWorks Submission
[2018-11-22] MEDS ORDERED: HYDROCODONE/CHLORPHEN 5 ML/OSYR ONE (08:17)
[2018-11-22] MEDS ORDERED: PROMETHAZINE 25 MG TABLET ONE (08:18)
[2018-11-22 09:05] LABS: Absolute Lymphocytes (CBC) 1.7 K/uL (0.7-4.9); Basophils % 0.3 % (0-1.3); Hematocrit 33.9 % (36.0-45.0); Lymphocytes % 18.8 % (15.3-44.8)
--- NOTE | 2018-11-22 09:06 | RAD REPORT ---
EXAM DESCRIPTION: RAD - Chest Pa And Lat (2 Views) - 11/22/2018 8:09 am CLINICAL HISTORY: COUGH, recent bronchitis diagnosis COMPARISON: June 2013 TECHNIQUE: PA and lateral views of the chest were obtained. FINDINGS: The lungs are slightly underinflated. There is a focal masslike density right upper lung f ield. No cavitation or air bronchogram formation seen. Margins are slightly irregular. In the acute c linical setting this is most likely a consolidated right upper lobe pneumonia. However, continued slava se follow-up is needed to assure complete clearing with medical management. Elsewhere in the chest no infiltrate, mass or acute finding. Trachea is midline. Heart size is normal and central vasculature is within normal limits. No pleural effusion or pneu mothorax seen. No acute bony finding noted. No aortic abnormality. IMPRESSION: A 4-5 centimeter mass density in the right upper lobe is most likely a consolidated pneu monia in the acute clinical setting. Malignant mass cannot be excluded and continued close follow-up is needed to assure mass fully clears on medical management.
[2018-11-22] MEDS ORDERED: CEFTRIAXONE/SWI 1gm 1 GM/10 ML SYR ONE (09:17)
[2018-11-22] MEDS ORDERED: IBUPROFEN 400 MG TAB ONE (09:17)
[2018-11-22] MEDS ORDERED: FENTANYL CITR 100 MCG/2 ML ONE (09:17)
[2018-11-22] MEDS ORDERED: NA CHLORIDE 0.9% 1,000 ML ONE (09:17)
[2018-11-22] MEDS ORDERED: AZITHROMYCIN 250 MG TAB ONE (09:18)
[2018-11-22 09:36] LABS: Potassium 3.9 mmol/L (3.5-5.1)
[2018-11-22] MEDS ORDERED: PROMETHAZINE 25 MG/ML VIAL ONE (10:03)
--- NOTE | 2018-11-22 10:16 | RAD REPORT ---
EXAM DESCRIPTION: CT - Chest For Pe Angio - 11/22/2018 9:52 am CLINICAL HISTORY: COUGH shortness of breath COMPARISON: Chest two views same date TECHNIQUE: Dynamically enhanced 3 mm thick images of the chest were obtained during administration o f approximately 150mL Isovue 370 IV contrast. Coronal and oblique MIP reconstruction images were gene rated and reviewed. Exam utilizes a protocol to evaluate the pulmonary arterial tree. All CT scans are performed using dose optimization technique as appropriate and may include automated exposure control or mA/KV adjustment according to patient size. FINDINGS: No pulmonary emboli are identified. The aorta as imaged shows no acute or suspicious finding. No pericardial thickening or effusion. A 7 centimeter area of dense consolidation is seen in the anterior right upper lobe. This extends fro m the hilum to the apex abutting the pleura along the anterior margin of the chest. At the periphery of this mass there are additional patchy areas of airspace opacification. A few small air bronchogram s are seen along the inferior aspect of this mass density. This is the correlate to the chest film fi nding. The mass abuts the chest wall anteriorly but does not clearly extend across the pleura into th e chest wall. No cavitation in the mass. No calcification. A few small enhancing vessels are seen wit hin the mass and do not appear to be displaced. The spray artifact from the dense SVC opacification l imits vascular assessment within the mass. Lung ritchie are otherwise clear. No pleural effusion or pleural thickening. Bilateral breast implant s in place. Reactive sized lymph nodes seen right suprahilar region. No contralateral lymphadenopathy. No chest w all masses or abnormal axillary lymphadenopathy. IMPRESSION: No pulmonary emboli identified. 7 centimeter area of consolidated mass density in the anterior right upper lobe is the correlate to t he chest film finding. Acute consolidated pneumonia is still the favored diagnosis. Malignancy is a lesser consideration but not excluded given the patient's age. No additional risk factors for malignancy noted in available h istory. As noted on the chest film, continued close CT or chest film follow-up needed to assure complete maría ring following medical management.
--- NOTE | 2018-11-22 10:45 | ER ---
Nurse's Notes [facility] Name: Nat Hernandez Age: 43 yrs Sex: Female : 1975 Arrival Date: 11/22/2018 Time: 07:41 Bed 13 Private MD: Diagnosis: Pneumonia, unspecified organism Presentation: 11/22 07:52 Presenting complaint: Patient states: " I was seen in ER about a week ago and dx w/ ph bronchitis, they sent me home w/ medicine but I feel like I'm getting worse." Reports cough, congestion, SOB, chest pain, fever, N/V/D, was prescribed steroid and cough suppressant. Transition of care: patient was not received from another setting of care. Onset of symptoms was November 22, 2018. Risk Assessment: Do you want to hurt yourself or someone else? Patient reports no desire to harm self or others. Initial Sepsis Screen: Does the patient meet any 2 criteria? No. Patient's initial sepsis screen is negative. Does the patient have a suspected source of infection? Yes: Productive cough/pneumonia. Care prior to arrival: Medication(s) given: Day-Quil this morning. 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 - Social history:: Smoking status: Patient/guardian denies using tobacco. - Ebola Screening: : No symptoms or risks identified at this time. Screenin:55 Abuse screen: Denies threats or abuse. Denies injuries from another. Nutritional ph screening: No deficits noted. Tuberculosis screening: No symptoms or risk factors identified. Fall Risk None identified. Assessment: 08:00 General: Appears in no apparent distress. uncomfortable, well groomed, Behavior is ph calm, cooperative, appropriate for age, Reports chills for >3 days, fever for > 3 days, feeling ill for > 3 days. Pain: Complains of pain in back and chest. Neuro: Level of Consciousness is awake, alert, obeys commands, Oriented to person, place, time, situation. Cardiovascular: Capillary refill < 3 seconds in bilateral fingers Patient's skin is warm and dry. Respiratory: Reports shortness of breath at rest cough that is productive, persistent pain with cough pain with respiration Airway is patent Respiratory effort is even, unlabored, Respiratory pattern is regular, Breath sounds are coarse in right upper lobe and left upper lobe. GI: Reports diarrhea, nausea, vomiting, Patient currently denies abdominal pain. Derm: Skin is intact, Skin is pink, warm \\T\\ dry. Musculoskeletal: Circulation, motion, and sensation intact. Range of motion: intact in all extremities. 09:30 Reassessment: Patient appears in no apparent distress at this time. Patient and/or ph family updated on plan of care and expected duration. Pain level reassessed. Patient is alert, oriented x 3, equal unlabored respirations, skin warm/dry/pink. Pt resting quietly, continue to c/o nausea, ERP notified. 11:15 Reassessment: Patient appears in no apparent distress at this time. Patient and/or ph family updated on plan of care and expected duration. Pain level reassessed. Patient is alert, oriented x 3, equal unlabored respirations, skin warm/dry/pink. Pt reports that nausea has improved, able to take PO medications, d/c home w/ daughter. Vital Signs: 07:54 BP 137 / 85; Pulse 85; Resp 20; Temp 98.3; Pulse Ox 99% on R/A; Weight 77.11 kg; Height ph 5 ft. 4 in. (162.56 cm); Pain 8/10; 08:55 BP 128 / 78; Pulse 84; Resp 20; Pulse Ox 97% on R/A; ph 09:59 BP 132 / 70; Pulse 76; Resp 18; Temp 97.8(TE); Pulse Ox 100% on R/A; mh5 11:10 BP 127 / 76; Pulse 78; Resp 18; Temp 97.8(O); Pulse Ox 100% on R/A; ph 07:54 Body Mass Index 29.18 (77.11 kg, 162.56 cm) ED Course: 07:41 Patient arrived in ED. as 07:43 Mirland[facility]C [facility] snw 07:43 Warren Galarza MD is Attending Physician. snw 07:52 Crista Santiago RN is Primary Nurse. ph 07:54 Triage completed. ph 07:56 Arm band placed on Patient placed in an exam room, on a stretcher. ph 07:56 Patient has correct armband on for positive identification. Bed in low position. Call mh5 light in reach. Pulse ox on. NIBP on. 08:34 Radiology exam delayed due to lab results not completed at this time. (BUN/Creatinine). vm2 08:45 Initial lab(s) drawn, by me, sent to lab. First set of blood cultures drawn. Inserted ph saline lock: 20 gauge in right antecubital area, using aseptic technique. Blood collected. 09:05 Radiology exam delayed due to lab results not completed at this time. (BUN/Creatinine). vm2 10:25 CT Chest For PE Angio In Process Unspecified. EDMS 11:21 No provider procedures requiring assistance completed. IV discontinued, intact, ph bleeding controlled, No redness/swelling at site. Pressure dressing applied. Administered Medications: 08:22 Drug: Tussionex Pennkinetic ER 5 ml Route: PO; ph 10:08 Follow up: Response: No adverse reaction ph 08:22 Drug: Phenergan 25 mg Route: PO; ph 10:08 Follow up: Response: No adverse reaction; Nausea unchanged ph 08:31 CANCELLED (other intervention used): Rocephin (cefTRIAXone) 1 grams IM once snw 09:25 Drug: NS 0.9% 1000 ml Route: IV; Rate: 1 bolus; Site: right antecubital; ph 10:30 Follow up: Response: No adverse reaction; IV Status: Completed infusion ph 09:25 Drug: Rocephin 1 grams Route: IV; Rate: calculated rate; Site: right antecubital; ph 10:09 Follow up: Response: No adverse reaction; IV Status: Completed infusion ph 09:25 Drug: fentaNYL (PF) 50 mcg Route: IVP; Site: right antecubital; ph 10:10 Follow up: Response: No adverse reaction; Pain is decreased; RASS: Alert and Calm (0) ph 10:06 Drug: Phenergan 6.25 mg Route: IVP; Site: right antecubital; ph 11:15 Follow up: Response: No adverse reaction; Nausea is decreased ph 10:30 Drug: Zithromax 500 mg Route: PO; ph 11:13 Follow up: Response: No adverse reaction ph 10:30 Drug: Motrin 400 mg Route: PO; ph 11:13 Follow up: Response: No adverse reaction ph Outcome: 10:41 Discharge ordered by MD. abdi 11:22 Discharged to home ambulatory, with family. ph 11:22 Condition: improved 11:22 Discharge instructions given to patient, Instructed on discharge instructions, follow up and referral plans. medication usage, Demonstrated understanding of instructions, follow-up care, medications, Prescriptions given X 5 11:23 Patient left the ED. ph Signatures: Dispatcher [employer] EDMS Mirlande Hernadez, MANAGER OF NETWORK-C MANAGER OF NETWORK-Aracelis Avendaño Patricia, RN RN Mami Mcguire [facility] Oneyda Rhodes [facility]
--- NOTE | 2018-11-22 10:47 | EDPHYS ---
Physician Documentation [facility] Name: Nat Hernandez Age: 43 yrs Sex: Female : 1975 Arrival Date: 11/22/2018 Time: 07:41 Bed 13 Private MD: ED Physician Warren Galarza HPI: 11/22 07:57 This 43 yrs old Female presents to ER via Ambulatory with complaints of snw Fever, Cough - Bronchitis. 07:57 The patient reports fever, not measured (subjective). Onset: The symptoms/episode snw began/occurred yesterday. Modifying factors: Recent medications: Other tx 2 weeks ago for allergies, 6 days ago dx with bronchitis. . Associated signs and symptoms: Pertinent positives: cough, runny nose, sinus congestion, malaise, fatigue, unable to rest. Severity of symptoms: At their worst the symptoms were moderate. as noted. as noted. 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 - Social history:: Smoking status: Patient/guardian denies using tobacco. - Ebola Screening: : No symptoms or risks identified at this time. ROS: 07:56 Eyes: Negative for injury, pain, redness, and discharge, ENT: Negative for injury, snw pain, and discharge, hoarse voice Neck: Negative for injury, pain, and swelling, Cardiovascular: Negative for chest pain, palpitations, and edema. 07:56 Abdomen/GI: Negative for abdominal pain, nausea, vomiting, diarrhea, and constipation, Back: Negative for injury and pain, : Negative for injury, bleeding, discharge, and swelling, MS/Extremity: Negative for injury and deformity, Skin: Negative for injury, rash, and discoloration. 07:56 Constitutional: Positive for body aches, fever, malaise. 07:56 Respiratory: Positive for cough, wheezing. 07:56 Neuro: Positive for fatigue and malaise. Exam: 07:55 Constitutional: This is a well developed, well nourished patient who is awake, alert, snw and in no acute distress. Head/Face: Normocephalic, atraumatic. Eyes: Pupils equal round and reactive to light, extra-ocular motions intact. Lids and lashes normal. Conjunctiva and sclera are non-icteric and not injected. Cornea within normal limits. Periorbital areas with no swelling, redness, or edema. Neck: Trachea midline, no thyromegaly or masses palpated, and no cervical lymphadenopathy. Supple, full range of motion without nuchal rigidity, or vertebral point tenderness. No Meningismus. Chest/axilla: Normal chest wall appearance and motion. Nontender with no deformity. No lesions are appreciated. 07:55 Abdomen/GI: Soft, non-tender, with normal bowel sounds. No distension or tympany. No guarding or rebound. No evidence of tenderness throughout. Back: No spinal tenderness. No costovertebral tenderness. Full range of motion. Skin: Warm, dry with normal turgor. Normal color with no rashes, no lesions, and no evidence of cellulitis. MS/ Extremity: Pulses equal, no cyanosis. Neurovascular intact. Full, normal range of motion. Neuro: Awake and alert, GCS 15, oriented to person, place, time, and situation. Cranial nerves II-XII grossly intact. Motor strength 5/5 in all extremities. Sensory grossly intact. Cerebellar exam normal. Normal gait. Psych: Awake, alert, with orientation to person, place and time. Behavior, mood, and affect are within normal limits. 07:55 Cardiovascular: Pulses: Heart sounds: normal, PMI right sternal border. 07:55 Respiratory: the patient does not display signs of respiratory distress, Respirations: normal, Breath sounds: bronchial sounds, bronchitic cough. Vital Signs: 07:54 BP 137 / 85; Pulse 85; Resp 20; Temp 98.3; Pulse Ox 99% on R/A; Weight 77.11 kg; Height ph 5 ft. 4 in. (162.56 cm); Pain 8/10; 08:55 BP 128 / 78; Pulse 84; Resp 20; Pulse Ox 97% on R/A; ph 09:59 BP 132 / 70; Pulse 76; Resp 18; Temp 97.8(TE); Pulse Ox 100% on R/A; mh5 11:10 BP 127 / 76; Pulse 78; Resp 18; Temp 97.8(O); Pulse Ox 100% on R/A; ph 07:54 Body Mass Index 29.18 (77.11 kg, 162.56 cm) ph MDM: 07:43 Patient medically screened. snw 08:20 Data reviewed: vital signs, nurses notes. Data interpreted: Pulse oximetry: on room air snw is 99 %. Interpretation: normal. Counseling: I had a detailed discussion with the patient and/or guardian regarding: the historical points, exam findings, and any diagnostic results supporting the discharge/admit diagnosis, radiology results, the need for outpatient follow up, for definitive care. Response to treatment: There is no appreciated change of the patient's symptoms at this time. 11/22 08:31 Order name: CBC with Diff snw 11/22 08:31 Order name: Chem 7 snw 11/22 07:55 Order name: Chest Pa And Lat (2 Views) XRAY snw 11/22 08:31 Order name: Blood Culture Adult (2) snw 11/22 09:09 Order name: CBC with Automated Diff; Complete Time: 09:10 EDMS 11/22 09:39 Order name: Basic Metabolic Panel; Complete Time: 10:17 EDMS 11/22 08:31 Order name: CT Chest For PE Angio; Complete Time: 11:12 snw 11/22 11:07 Order name: RAD; Complete Time: 11:08 EDMS Administered Medications: 08:22 Drug: Tussionex Pennkinetic ER 5 ml Route: PO; ph 10:08 Follow up: Response: No adverse reaction ph 08:22 Drug: Phenergan 25 mg Route: PO; ph 10:08 Follow up: Response: No adverse reaction; Nausea unchanged ph 08:31 CANCELLED (other intervention used): Rocephin (cefTRIAXone) 1 grams IM once snw 09:25 Drug: NS 0.9% 1000 ml Route: IV; Rate: 1 bolus; Site: right antecubital; ph 10:30 Follow up: Response: No adverse reaction; IV Status: Completed infusion ph 09:25 Drug: Rocephin 1 grams Route: IV; Rate: calculated rate; Site: right antecubital; ph 10:09 Follow up: Response: No adverse reaction; IV Status: Completed infusion ph 09:25 Drug: fentaNYL (PF) 50 mcg Route: IVP; Site: right antecubital; ph 10:10 Follow up: Response: No adverse reaction; Pain is decreased; RASS: Alert and Calm (0) ph 10:06 Drug: Phenergan 6.25 mg Route: IVP; Site: right antecubital; ph 11:15 Follow up: Response: No adverse reaction; Nausea is decreased ph 10:30 Drug: Zithromax 500 mg Route: PO; ph 11:13 Follow up: Response: No adverse reaction ph 10:30 Drug: Motrin 400 mg Route: PO; ph 11:13 Follow up: Response: No adverse reaction ph Disposition: 11/22/18 10:41 Discharged to Home. Impression: Pneumonia, unspecified organism. - Condition is Stable. - Discharge Instructions: Fever, Adult, Community-Acquired Pneumonia, Adult, Rehydration, Adult. - Prescriptions for cefdinir 300 mg Oral capsule - take 2 capsule by ORAL route once daily for 10 days; 20 capsule. Tessalon Perles 100 mg Oral Capsule - take 1 capsule by ORAL route every 8 hours As needed; 15 capsule. Albuterol Sulfate 90 mcg/actuation - inhale 1-2 puff by INHALATION route every 4-6 hours; 1 Inhaler. Zithromax 500 mg Oral Tablet - take 1 tablet by ORAL route once daily for 5 days; 5 tablet. promethazine 25 mg Oral Tablet - take 1 tablet by ORAL route every 6 hours As needed; 20 tablet. - Work release form, Medication Reconciliation Form, Thank You Letter, Antibiotic Education, Prescription Opioid Use form. - Follow up: Private Physician; When: 1 week; Reason: Recheck today's complaints, Continuance of care, Re-evaluation by your physician. Follow up: Emergency Department; When: As needed; Reason: Worsening of condition. - Notes: Please repeat chest x-ray in 2 weeks to assure resolution of upper right lobe mass. Addendum: 11/24/2018 08:08 Co-signature as Attending Physician, Warren Galarza MD I agree with the assessment and k dr plan of care. Signatures: Dispatcher [employer] Warren Fregoso MD MD kdr Therrien, Shelly, INSTRUMENT TECHNICIAN APPRENTICE-C INSTRUMENT TECHNICIAN APPRENTICE-Crista Adkins RN RN ph Corrections: (The following items were deleted from the chart) 11/22 08:31 08:20 Rocephin (cefTRIAXone) 1 grams IM once ordered. trinidad abdi 08:31 08:31 Rocephin (cefTRIAXone) 1 grams IM once ordered. trin[place] abdi 11:23 10:41 11/22/2018 10:41 Discharged to Home. Impression: Pneumonia, unspecified organism. ph Condition is Stable. Forms are Medication Reconciliation Form, Thank You Letter, Antibiotic Education, Prescription Opioid Use. Follow up: Private Physician; When: 1 week; Reason: Recheck today's complaints, Continuance of care, Re-evaluation by your physician. Follow up: Emergency Department; When: As needed; Reason: Worsening of condition. trinidad
[2018-11-22 11:50] VITALS: TEMP 97.8; O2SAT 100
[2018-11-22 11:52] VITALS: BP 127/76
== END 2018-11-22 11:23 | disposition home or self-care (01) ==
LOC: ER 07:38
DX: J18.9 Pneumonia, unspecified organism (principal)
CPT/HCPCS: 96365; 87040 ×2; 85025; 80048; 36415; 71275; 71046; 96375; 99284; Q9967; J2550; J3010; J0696; J7030

== ENCOUNTER 2024-04-21 15:10 | Emergency (ER) | payer BC ==
[2024-04-21] MEDS ORDERED: BENZONATATE 100 MG CAP PO ONE (15:37)
[2024-04-21] MEDS ORDERED: IBUPROFEN 400 MG TAB ONE (15:37)
[2024-04-21 16:03] LABS: SARS-CoV-2 Antigen CONTROL BLUE LINE VIS/BG OK; SARS-CoV-2 Antigen Rapid Res Negative (Negative)
--- NOTE | 2024-04-21 16:40 | RAD REPORT ---
EXAM: Chest Pa And Lat (2 Views) HISTORY: 48 years Female Cough;Fever COMPARISON: 05/19/2022, 11/22/2018 FINDINGS: LUNGS/PLEURA: Masslike opacity in the right upper lobe. This is new from prior. Patient has had simil ar findings such as on the CT from 11/22/2018 though there was subsequent improvement. MEDIASTINUM: The mediastinal silhouette is within normal limits CARDIAC: The cardiac silhouette is within normal limits. UPPER ABDOMEN: No significant abnormality. BONES: No acute abnormality. LINES/TUBES/OTHER: N/A IMPRESSION: Increased right upper lobe consolidative airspace disease is concerning for pneumonia. Though new fro m 06/15/2022, the patient had presumably a similar appearing consolidative pneumonia in this location in 2019.
[2024-04-21 18:15] LABS: Absolute Lymphocytes (CBC) 0.9 K/uL (0.7-4.9); Absolute Monocytes 0.8 K/uL (0.1-1.3); Absolute Neutrophil 6.2 K/uL (1.8-8.0); Basophils % 0.1 % (0-1.3); Eosinophils % 0.3 % (0-4.4); Hematocrit 36.3 % (36.0-45.0); Hemoglobin 12.6 g/dL (12.0-15.0); Lymphocytes % 11.3 % (15.3-44.8); MCHC 34.8 g/dL (32.0-36.0); MCV 80.7 fL (80-100); MPV 8.3 fL (7.6-11.3); Monocytes % 9.8 % (3.3-12.3); Neutrophils % 78.5 % (41.7-73.7); Platelets 212 thou/uL (152-406); RBC Red Blood Cell Count 4.51 M/uL (3.86-4.86); Red Cell Distribution Width 13.4 % (12.1-15.2)
[2024-04-21 18:19] LABS: PT Prothrombin Time 13.8 SECONDS (9.4-12.5); PTT, Activated Partial Thromb 31.9 SECONDS (24.3-36.9); Protime INR 1.32
[2024-04-21 18:28] LABS: ALT/SGPT 25 U/L (13-56); AST/SGOT 14 U/L (15-37); Albumin 3.2 g/dL (3.4-5.0); Albumin/Globulin Ratio 0.8 (1.1-1.8); Alkaline Phosphatase 107 U/L (45-117); Anion Gap 8.3 mEq/L (5.0-15.0); BUN Blood Urea Nitrogen 15 mg/dL (7-18); Bicarbonate 26 mEq/L (21-32); Bilirubin Total 0.7 mg/dL (0.2-1.0); Globulin 4.2 g/dL (2.3-3.5); Glomerular Filtration Rate 110 ml/min (=/>90); Glucose Level 89 mg/dL (74-106); Potassium 3.3 mEq/L (3.5-5.1); Protein, Total 7.4 g/dL (6.4-8.2); Sodium Level 135 mEq/L (136-145)
[2024-04-21] MEDS ORDERED: NA CHLORIDE 0.9% 1,000 ML ONE (18:32)
[2024-04-21] MEDS ORDERED: OSELTAMIVIR 75 MG CAP PO ONE (18:32)
[2024-04-21 18:44] LABS: Troponin High Sensitivity < 3.0 pg/mL (<58.9)
[2024-04-21] MEDS ORDERED: ONDANSETRON 4 MG/2 ML VIAL ONE (18:55)
[2024-04-21] MEDS ORDERED: KETOROLAC 30 MG/ML INJ ONE (18:56)
[2024-04-21] MEDS ORDERED: AZITHROMYCIN 250 MG TAB ONE (18:56)
[2024-04-21] MEDS ORDERED: POTASSIUM 25 MEQ EFFERV TAB ONE (18:56)
[2024-04-21 19:17] LABS: Sqamous Epithelial <5 /HPF (None Seen); Urine Bacteria <20 /HPF (<20); Urine Bilirubin NEGATIVE (Negative); Urine Blood Negative (Negative); Urine Clarity Extremely Turbid (Clear); Urine Color Yellow (Yellow); Urine Culture Reflex Order REFLEXED; Urine Glucose NEGATIVE (Negative); Urine Ketones 1+ (Negative); Urine Microscopic Reflex YN ORDER UMIC; Urine Mucus 1+ /HPF (None Seen); Urine Nitrite 2+ (Negative); Urine Protein TRACE (Negative); Urine RBC <5 /HPF (None Seen); Urine Urobilinogen Normal (Normal); Urine WBC 20-50 /HPF (<5)
--- NOTE | 2024-04-21 19:58 | ER ---
Nurse's Notes [facility] Name: Nat Devries Age: 48 yrs Sex: Female : 1975 Arrival Date: 04/21/2024 Time: 15:10 Bed 10 Private MD: Diagnosis: Influenza due to other identified influenza virus with pneumonia Presentation: 04/21 15:29 Chief complaint: Headache, sore throat, cough, congestion, N/V/D, malaise, and fever x hb 2 days. Coronavirus screen: At this time, the client does not indicate any symptoms associated with coronavirus-19. Ebola Screen: No symptoms or risks identified at this time. Initial Sepsis Screen: Does the patient meet any 2 criteria? No. Patient's initial sepsis screen is negative. Does the patient have a suspected source of infection? No. Patient's initial sepsis screen is negative. Risk Assessment: Do you want to hurt yourself or someone else? Patient reports no desire to harm self or others. Onset of symptoms was April 19, 2024. 15:29 Method Of Arrival: Ambulatory hb 15:29 Acuity: CODEY 3 kb3 Historical: - Allergies: 15:30 No Known Allergies; hb - PMHx: 15:30 ADD/ADHD; Kidney stones; hb - Immunization history:: Adult Immunizations up to date. - Infectious Disease History:: Denies. - Social history:: Smoking status: Patient denies any tobacco usage or history of. Screenin:30 [facility] ED Fall Risk Assessment (Adult) History of falling in the last 3 months, aa5 including since admission No falls in past 3 months (0 pts) Confusion or Disorientation No (0 pts) Intoxicated or Sedated No (0 pts) Impaired Gait No (0 pts) Mobility Assist Device Used No (0 pt) Altered Elimination No (0 pt) Score/Fall Risk Level 0 - 2 = Low Risk Oriented to surroundings, Maintained a safe environment, Educated pt \T\ family on fall prevention, incl call for assistance when getting out of bed, Assessed \T\ reinforced patient's understanding of fall precautions. Abuse screen: Denies threats or abuse. Nutritional screening: No deficits noted. Tuberculosis screening: No symptoms or risk factors identified. Assessment: 18:08 Reassessment: No changes from previously documented assessment. Patient and/or family ll1 updated on plan of care and expected duration. Pain level reassessed. 18:30 General: Appears uncomfortable, Behavior is calm, cooperative, Reports fever for 1-2 aa5 days, feeling ill for 1-2 days, fatigue for 1-2 days. Pain: Complains of pain in head Pain currently is 5 out of 10 on a pain scale. Quality of pain is described as aching, Pain began 2 days ago Is continuous. Neuro: Level of Consciousness is awake, alert, obeys commands, Oriented to person, place, time, situation. Cardiovascular: Heart tones S1 S2 present Rhythm is sinus tachycardia. Respiratory: Reports cough that is non-productive, persistent Airway is patent Respiratory effort is even, unlabored, Respiratory pattern is regular, symmetrical. GI: Abdomen is non-distended, Bowel sounds present X 4 quads. Abd is soft and non tender X 4 quads. Reports diarrhea, nausea, vomiting. : No signs and/or symptoms were reported regarding the genitourinary system. EENT: Reports nasal congestion sore throat . Derm: Skin is pink, warm \T\ dry. Musculoskeletal: Range of motion: intact in all extremities. 19:08 Reassessment: Pt now resting with eyes closed, . aa5 20:40 Reassessment: Patient and/or family updated on plan of care and expected duration. Pain ha1 level reassessed. Patient is alert, oriented x 3, equal unlabored respirations, skin warm/dry/pink. Patient states feeling better. Patient states symptoms have improved. Vital Signs: 15:29 BP 136 / 102; Pulse 125; Resp 18; Temp 100.2(O); Pulse Ox 100% on R/A; Pain 6/10; hb 18:08 Pulse 112; Resp 22; ll1 19:07 BP 128 / 87; Pulse 111; Resp 16 S; Temp 99.1(O); Pulse Ox 98% on R/A; Pain 5/10; ha1 20:40 BP 134 / 94; Pulse 101; Resp 20 S; Pulse Ox 99% on R/A; ha1 15:29 Pain Scale: Adult hb 19:07 Pain Scale: Adult ha1 ED Course: 15:12 Patient arrived in ED. mr 15:23 Rocio Jorgensen, FEMI is Primary Nurse. hb 15:27 Bob Dunn PA is PHCP. cp 15:27 Cassius Cary DO is Attending Physician. cp 15:30 Triage completed. hb 15:30 Arm band placed on. hb 15:38 SARS RAPID Sent. hb 15:38 Strep Sent. hb 15:38 Influenza Screen (a \T\ B) Sent. hb 15:38 RSV Sent. hb 16:04 XRAY Chest Pa And Lat (2 Views) In Process Unspecified. EDMS 17:48 Initial lab(s) drawn, by me, sent to lab. First set of blood cultures drawn. ll1 17:52 Inserted saline lock: 22 gauge in left antecubital area, using aseptic technique. Blood ll1 collected. Flushed with 10 mL NS. 18:08 Patient placed in an exam room, on a stretcher. ll1 18:30 Patient has correct armband on for positive identification. Bed in low position. Call aa5 light in reach. Side rails up X 1. Client placed on continuous cardiac and pulse oximetry monitoring. NIBP monitoring applied. electronic device monitor on. Pulse ox on. NIBP on. 19:05 Report given to FEMI Andujar. aa5 20:32 No provider procedures requiring assistance completed. IV discontinued, intact, ha1 bleeding controlled, No redness/swelling at site. Pressure dressing applied. 20:46 Provided Education on: follow ups. ha1 Administered Medications: 15:38 Drug: Ibuprofen PO 800 mg PO once Route: PO; hb 18:40 Follow up: Response: No adverse reaction aa5 15:38 Drug: Tessalon Perle PO 200 mg PO once Route: PO; hb 18:40 Follow up: Response: No adverse reaction aa5 18:40 Drug: NS 0.9% IV 1000 ml IV at 1 bolus Per protocol; to be given as a bolus over 60 aa5 minutes Route: IV; Rate: 1 bolus; Site: left antecubital; 20:48 Follow up: Response: No adverse reaction; IV Status: Completed infusion; IV Intake: ha1 1000ml 18:40 Drug: Oseltamivir PO 75 mg PO once Route: PO; aa5 19:07 Follow up: Response: No adverse reaction aa5 19:00 Drug: Potassium PO Effervescent Tablet 50 mEq PO once; dissolve in 4 ounces of water or aa5 juice Route: PO; 20:48 Follow up: Response: No adverse reaction ha1 19:00 Drug: AZITHromycin PO 500 mg PO once Route: PO; aa5 20:48 Follow up: Response: No adverse reaction; Marked relief of symptoms ha1 19:00 Drug: Ondansetron IVP 4 mg IVP once; over 2 minutes Route: IVP; Site: left antecubital; aa5 19:07 Follow up: Response: No adverse reaction aa5 19:00 Drug: Ketorolac IVP 10 mg 10 mg IVP once Route: IVP; Site: left antecubital; aa5 19:07 Follow up: Response: No adverse reaction aa5 Medication: 18:30 VIS not applicable for this client. aa5 Intake: 20:48 IV: 1000ml; Total: 1000ml. ha1 Outcome: 19:58 Discharge ordered by MD. cp 20:41 Discharged to home ambulatory, ha1 20:41 Condition: stable 20:41 Discharge instructions given to patient, Instructed on discharge instructions, follow up and referral plans. medication usage, Demonstrated understanding of instructions, follow-up care, medications, Prescriptions given X 4, 20:47 Patient left the ED. ha1 Signatures: Dispatcher [employer] EDMS Clari Devries, Reg Reg mr HoweaDhlia, RN RN aa5 Bob Dunn PA PA cp Rocio Jorgensen, RN RN hb Bev Nicolas, RN RN 1 Pratima Watts RN RN ha1 Emma Samuels, RN RN kb3 Corrections: (The following items were deleted from the chart) 18:49 18:48 NS 0.9% IV 1000 ml IV at 1 bolus in left antecubital aa5 aa5 19:57 15:29 Acuity: CODEY 4 hb kb3 20:46 19:07 BP 128 / 87; Pulse 111bpm; Resp 16bpm; Spontaneous; Pulse Ox 98% RA; Temp 98.5F ha1 Oral; Pain 5/10, Adult; aa5
--- NOTE | 2024-04-21 19:58 | EDPHYS ---
Physician Documentation [facility] Name: Nat Devries Age: 48 yrs Sex: Female : 1975 Arrival Date: 04/21/2024 Time: 15:10 Bed 10 Private MD: ED Physician Cassius Cary HPI: 04/21 15:35 This 48 yrs old Female presents to ER via Ambulatory with complaints of Flu Symptoms. cp 15:35 The patient or guardian reports cough, with no sputum, flu symptoms. cp 15:35 Onset: The symptoms/episode began/occurred 2 day(s) ago. cp 15:35 Associated signs and symptoms: Pertinent positives: fever, sore throat, headache, cp malaise, body aches, cough. Severity of symptoms: in the emergency department the symptoms are worse. Historical: - Allergies: 15:30 No Known Allergies; hb - PMHx: 15:30 ADD/ADHD; Kidney stones; hb - Immunization history:: Adult Immunizations up to date. - Infectious Disease History:: Denies. - Social history:: Smoking status: Patient denies any tobacco usage or history of. ROS: 15:40 Constitutional: Positive for body aches, chills, fever, cp 15:40 Cardiovascular: Positive for chest pain, with cough, Negative for edema, palpitations, cp 15:40 Respiratory: Positive for cough, "sounds productive", shortness of breath, 15:40 Eyes: Negative for injury, pain, redness, and discharge, cp 15:40 ENT: Positive for sore throat, Negative for drainage from ear(s), ear pain, difficulty swallowing, difficulty handling secretions, 15:40 Neck: Negative for stiffness, 15:40 Abdomen/GI: Negative for abdominal pain, vomiting, diarrhea, constipation, 15:40 Neuro: Negative for altered mental status, 15:40 All other systems are negative, Exam: 15:45 Constitutional: The patient appears in no acute distress, alert, awake, cp non-diaphoretic, non-toxic, well developed, well nourished, uncomfortable, 15:45 Head/Face: Normocephalic, atraumatic. cp 15:45 Eyes: Periorbital structures: appear normal, Conjunctiva: normal, no exudate, no injection, Sclera: no appreciated abnormality, Lids and lashes: appear normal, bilaterally, 15:45 ENT: External ear(s): are unremarkable, Ear canal(s): are normal, clear, TM's: dullness, bilaterally, Nose: is normal, Mouth: Lips: moist, Oral mucosa: moist, Posterior pharynx: Airway: no evidence of obstruction, patent, erythema, that is mild, exudate, is not appreciated, 15:45 Neck: ROM/movement: Meningeal signs: are not present, nuchal rigidity, is not appreciated, 15:45 Chest/axilla: Inspection: normal, 15:45 Cardiovascular: Rate: tachycardic, Rhythm: regular, Edema: is not appreciated, JVD: is not appreciated, 15:45 Respiratory: the patient does not display signs of respiratory distress, Respirations: shallow respirations, that is mild, Breath sounds: bronchial sounds, that are mild, are heard diffusely, stridor, is not appreciated, wheezing: is not appreciated, 15:45 Abdomen/GI: Exam negative for discomfort, distension, guarding, Inspection: abdomen appears normal, 15:45 Back: CVA tenderness, is absent, 15:45 Skin: cellulitis, is not appreciated, no rash present. 15:45 Neuro: Orientation: to person, place \\T\\ time. Mentation: is normal, Motor: moves all fours, strength is normal, 18:10 ECG was reviewed by the Attending Physician. Vital Signs: 15:29 BP 136 / 102; Pulse 125; Resp 18; Temp 100.2(O); Pulse Ox 100% on R/A; Pain 6/10; hb 18:08 Pulse 112; Resp 22; ll1 19:07 BP 128 / 87; Pulse 111; Resp 16 S; Temp 99.1(O); Pulse Ox 98% on R/A; Pain 5/10; ha1 20:40 BP 134 / 94; Pulse 101; Resp 20 S; Pulse Ox 99% on R/A; ha1 15:29 Pain Scale: Adult hb 19:07 Pain Scale: Adult ha1 MDM: 15:27 Medical Screening Exam initiated 19:58 Data reviewed: vital signs, nurses notes, lab test result(s), EKG, radiologic studies, cp plain films, and as a result, I will discharge patient. 19:58 Differential diagnosis: bronchitis, flu, sepsis, pneumonia. I considered the following cp discharge prescriptions or medication management in the emergency department Medications were administered in the Emergency Department. See MAR. Independent interpretation of the following test(s) in the Emergency Department EKG: See my EKG interpretation above. Counseling: I had a detailed discussion with the patient and/or guardian regarding the historical points, exam findings, and any diagnostic results supporting the discharge/admit diagnosis, lab results, radiology results, the need for outpatient follow up, a family practitioner, to return to the emergency department if symptoms worsen or persist or if there are any questions or concerns that arise at home. Response to treatment: the patient's symptoms have markedly improved after treatment, and as a result, I will discharge patient. 04/21 15:32 Order name: RSV; Complete Time: 17:10 cp 04/21 15:32 Order name: Influenza Screen (a \\T\\ B); Complete Time: 17:10 04/21 15:32 Order name: Strep 04/21 15:32 Order name: SARS RAPID; Complete Time: 17:10 04/21 16:05 Order name: Throat Culture [facility] 04/21 17:12 Order name: Blood Culture Adult (2) 04/21 17:12 Order name: CBC with Diff; Complete Time: 18:37 04/21 18:37 Interpretation: Normal except: DIPTI% 78.5; LYM% 11.3. 04/21 17:12 Order name: CMP; Complete Time: 18:46 cp 04/21 18:46 Interpretation: Normal except: NA 135; K 3.3; AST 14; ALB 3.2; GLOB 4.2; A/G 0.8. 04/21 17:12 Order name: Lactate w/ 2H reflex if indic.; Complete Time: 18:37 cp 04/21 17:12 Order name: Protime (+inr); Complete Time: 18:37 cp 04/21 17:12 Order name: Ptt, Activated; Complete Time: 18:37 cp 04/21 17:12 Order name: Urinalysis w/ reflexes cp 04/21 17:12 Order name: Troponin High Sensitivity; Complete Time: 18:46 cp 04/21 19:22 Order name: Urine Culture [facility] 04/21 15:32 Order name: XRAY Chest Pa And Lat (2 Views); Complete Time: 17:10 cp 04/21 17:11 Interpretation: Report reviewed. cp 04/21 17:12 Order name: Accucheck; Complete Time: 18:17 cp 04/21 17:12 Order name: Cardiac monitoring; Complete Time: 18:17 cp 04/21 17:12 Order name: EKG - Nurse/Tech; Complete Time: 18:08 cp 04/21 17:12 Order name: IV Saline Lock - Large Bore; Complete Time: 17:52 cp 04/21 17:12 Order name: Labs collected and sent; Complete Time: 17:52 cp 04/21 17:12 Order name: O2 Per Protocol; Complete Time: 18:17 cp 04/21 17:12 Order name: O2 Sat Monitoring; Complete Time: 18:17 cp 04/21 17:12 Order name: Vital Signs; Complete Time: 18:17 cp EC:10 Rate is 110 beats/min. Rhythm is regular. GA interval is normal. QRS interval is cp normal. QT interval is normal. T waves are Inverted in lead aVR. Interpreted by me. Reviewed by me. Administered Medications: 15:38 Drug: Ibuprofen PO 800 mg PO once Route: PO; hb 18:40 Follow up: Response: No adverse reaction aa5 15:38 Drug: Tessalon Perle PO 200 mg PO once Route: PO; hb 18:40 Follow up: Response: No adverse reaction aa5 18:40 Drug: NS 0.9% IV 1000 ml IV at 1 bolus Per protocol; to be given as a bolus over 60 aa5 minutes Route: IV; Rate: 1 bolus; Site: left antecubital; 20:48 Follow up: Response: No adverse reaction; IV Status: Completed infusion; IV Intake: ha1 1000ml 18:40 Drug: Oseltamivir PO 75 mg PO once Route: PO; aa5 19:07 Follow up: Response: No adverse reaction aa5 19:00 Drug: Potassium PO Effervescent Tablet 50 mEq PO once; dissolve in 4 ounces of water or aa5 juice Route: PO; 20:48 Follow up: Response: No adverse reaction ha1 19:00 Drug: AZITHromycin PO 500 mg PO once Route: PO; aa5 20:48 Follow up: Response: No adverse reaction; Marked relief of symptoms ha1 19:00 Drug: Ondansetron IVP 4 mg IVP once; over 2 minutes Route: IVP; Site: left antecubital; aa5 19:07 Follow up: Response: No adverse reaction aa5 19:00 Drug: Ketorolac IVP 10 mg 10 mg IVP once Route: IVP; Site: left antecubital; aa5 19:07 Follow up: Response: No adverse reaction aa5 Disposition: 04/22 11:56 I was immediately available on-site in the Emergency Department for consultation in the ms3 care of the patient. Disposition Summary: 04/21/24 19:58 Discharge Ordered Notes: Location: Home cp Problem: new cp Symptoms: have improved cp Condition: Stable cp Diagnosis - Influenza due to other identified influenza virus with pneumonia cp Followup: cp - With: Private Physician - When: 2 - 3 days - Reason: Worsening of condition Discharge Instructions: - Discharge Summary Sheet cp - Influenza, Adult cp - Community-Acquired Pneumonia, Adult cp - Influenza Tests cp Forms: - Medication Reconciliation Form cp - Antibiotic Education cp - Prescription Opioid Use cp - Patient Portal Instructions cp - Leadership Thank You Letter cp - Work release form ha1 Prescriptions: - Bromfed DM 2-30-10 mg/5 mL Oral syrup - administer 10 milliliter ORAL route 3-4 times daily as needed for cold cp symptoms; 240 milliliter; Refills: 0, Product Selection Permitted - Ibuprofen 800 mg Oral Tablet - take 1 tablet ORAL route every 8 hours As needed take with food; 30 tablet; cp Refills: 0, Product Selection Permitted - Zithromax Z-Kenton 250 mg Oral Tablet - take 1 tablet ORAL route as directed for 5 days Day 1 - take two (2) tablets cp one time. Day 2, 3, 4 , 5 take one (1) tablet once daily.; 6 tablet; Refills: 0, Product Selection Permitted - Tamiflu 75 mg Oral capsule - take 1 tablet ORAL route every 12 hours for 5 days; 10 tablet; Refills: 0, cp Product Selection Permitted Signatures: Dispatcher [employer] EDMN Dahlia Howe RN RN aa5 Bob Dunn PA PA cp Rocio Jorgensen RN RN Cassius Cary DO DO ms3 Pratima Watts RN ha1 Corrections: (The following items were deleted from the chart) 04/21 17:13 17:13 BLOOD CULTURE*+BA.LAB.BRZ ordered. EDMN EDMS 17:13 17:13 CBC+H.LAB.BRZ ordered. EDMS EDMS 17:13 17:13 COMPREHENSIVE METABOLIC PANEL+C.LAB.BRZ ordered. EDMS EDMS 17:13 17:13 LACTATE+C.LAB.BRZ ordered. EDMS EDMS 17:13 17:13 PROTIME (+INR)+COAG.LAB.BRZ ordered. EDMS EDMS 17:13 17:13 PTT, ACTIVATED+COAG.LAB.BRZ ordered. EDMS EDMS 17:13 17:13 Urinalysis+U.LAB.BRZ ordered. EDMS EDMS 17:13 17:13 Troponin High Sensitivity+C.LAB.BRZ ordered. EDMS EDMS 19:39 15:30 This 48 yrs old Female presents to ER via Ambulatory with complaints of Flu cp Symptoms. cp
[2024-04-21 21:12] VITALS: TEMP 99.1
[2024-04-21 21:13] VITALS: BP 134/94; O2SAT 99
--- NOTE | 2024-04-22 12:11 | EKG ---
Test Date: 2024-04-21 Test Time: 18:05:24 [employer]: GILBERT MEASUREMENT RESULTS: Intervals: Rate: 110 MD: 160 QRSD: 76 QT: 340 QTc: 460 Garrett: P: 17 MD: 160 QRS: 9 T: 9 INTERPRETIVE STATEMENTS: Sinus tachycardia Otherwise normal ECG No previous ECG available for comparison Electronically Signed On 04-22-24 12:10:20 [employer] by Anthony Baires
== END 2024-04-21 20:47 | disposition home or self-care (01) ==
LOC: ER 15:10
DX: J10.00 Influenza due to other identified influenza virus with unspecified type of pneumonia (principal); Z11.52 Encounter for screening for COVID-19
CPT/HCPCS: 96361; 93005; 87040 ×2; 87070; 87088; 85025; 81001; 87086; 36415; 85610; 87081; 83605; 85730; 84484; 80053; 87807; 87804 ×2; 71046; 96375; 96374; 99285; 87811; J2405; J7030